=== PATIENT | female | born 1995 | race Caucasian/White ===

== ENCOUNTER 2018-05-17 14:38 | Emergency (ER) | payer SELFPAY ==
--- NOTE | 2018-05-17 14:52 | ED.PDOC ---
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 She is [id number].her first baby delivered vaginally in 2 yrs ago uncomplicated. Timing/Duration: just prior to arrival Quality: moderate, cramping Radiation: suprapubic Activites at Onset: none Prior abdominal problems: none Sexual intercourse history: single partner, other - see hpi Improving Factors: nothing Worsening Factors: nothing Associated Symptoms: other - feels about to passed out Allergies/Adverse Reactions: Allergies Erytrichium Allergy (Verified 05/17/18 15:17) Review of Systems - Review of Systems Constitutional: States: no symptoms reported EENTM: States: no symptoms reported Respiratory: States: no symptoms reported Cardiology: States: no symptoms reported Gastrointestinal/Abdominal: States: no symptoms reported Genitourinary: States: see HPI, other - post bleeding Skin: States: no symptoms reported Neurological: States: no symptoms reported Endocrine: States: no symptoms reported Past Medical History (General) - Patient Medical History Hx Seizures: No Hx Asthma: No Hx Cardiac Disorders: No Surgical History: no surgical history - Social History Hx Tobacco Use: No Hx Alcohol Use: No Hx Substance Use: No Hx Depression: No Feels Threatened In Home Enviroment: No Hx Physical Abuse: No Hx Emotional Abuse: No - Activities of Daily Living Patient Lives Alone: No - Female History Patient is a Female of Child Bearing Age (10 -59 yrs old): Yes Patient : No - post -2 days Family Medical History - Family History Mother Family History: No Known Physical Exam - Physical Exam General Appearance: Alert, Comfortable, No apparent distress Eyes, Ears, Nose, Throat Exam: PERRL/EOMI, normal ENT inspection Neck: supple, normal inspection Cardiovascular/Respiratory: regular rate, rhythm, no M/R/G, normal peripheral pulses, normal breath sounds, no respiratory distress Gastrointestinal/Abdominal: normal bowel sounds, non tender, soft Pelvic Exam: no cerv. motion tender, active bleeding - cervical os, other - blood clots/vagina;uterus firm Back Exam: no CVA tenderness, no vertebral tenderness Extremity: no pedal edema, no calf tenderness Neurologic: alert, oriented x 3 Progress - Progress Progress: 05/17/18 16:16 Vital Signs - 8 hr 05/17/18 15:06 Temperature 97.4 F L Pulse Rate [ 110 H left arm] Respiratory 16 Rate Blood Pressure 103/61 [Left Arm] O2 Sat by Pulse 99 Oximetry 05/17/18 16:41 Uterus was vigorously massage until firm and noted big blood clots coming out / vagina - Results/Orders Results/Orders: Laboratory Results - last 24 hr 05/17/18 05/17/18 05/17/18 14:30 14:30 14:30 WBC 11.0 H RBC 2.93 L Hgb 8.4 L Hct 25.5 L MCV 87.2 MCH 28.6 MCHC 33.0 RDW 15.0 H Plt Count 275 MPV 8.3 Absolute Neuts (auto) 7.40 H Absolute Lymphs (auto) 2.90 Absolute Monos (auto) 0.60 Absolute Eos (auto) 0.10 Absolute Basos (auto) 0.00 Neutrophils % 66.9 Lymphocytes % 26.0 Monocytes % 5.8 Eosinophils % 1.2 Basophils % 0.1 Sodium 141 Potassium 3.5 L Chloride 106 Carbon Dioxide 26 Anion Gap 12.5 BUN 18 Creatinine 0.88 BUN/Creatinine Ratio 20.5 H Random Glucose 113 H Serum Osmolality 284.0 Calcium 8.7 Beta HCG, Quant Patient ABO/Rh A POSITIVE Antibody Screen Cancelled 05/17/18 14:30 WBC RBC Hgb Hct MCV MCH MCHC RDW Plt Count MPV Absolute Neuts (auto) Absolute Lymphs (auto) Absolute Monos (auto) Absolute Eos (auto) Absolute Basos (auto) Neutrophils % Lymphocytes % Monocytes % Eosinophils % Basophils % Sodium Potassium Chloride Carbon Dioxide Anion Gap BUN Creatinine BUN/Creatinine Ratio Random Glucose Serum Osmolality Calcium Beta HCG, Quant 36.6 H Patient ABO/Rh Antibody Screen - EKG/XRAY/CT Xray Comments: Pelvic Sono-no retained placental fragments;blood clots uterus Departure - Departure Clinical Impression: Near syncope, Anemia due to blood loss hemorrhage, condition Qualifiers: hemorrhage type: delayed hemorrhage Qualified Code(s): O72.2 - Delayed and secondary hemorrhage Time of Disposition: 16:46 Disposition: Transfer to Hospital Condition: Fair Departure Forms: Patient Portal Self Enrollment Transfer to Outside Facility - Transfer Information Accepting Provider:: D/W Dr. Timmy Schulz Accepting Facility: [facility] Reason for Transfer: required specialist not available - Obstetrics
[2018-05-17] MEDS ORDERED: SODIUM CHLORIDE 0.9% 1000ML 1,000 ML IVS ONE (14:53)
[2018-05-17] MEDS ORDERED: fentaNYL CITRATE INJ 50 MCG/ML AMP ONE (15:26)
[2018-05-17] MEDS ORDERED: fentaNYL CITRATE INJ 50 MCG/ML AMP IV ONE (15:43)
--- NOTE | 2018-05-17 15:59 | US ---
Transabdominal pelvic sonogram CLINICAL HISTORY: Persistent vaginal bleeding 9 days FINDINGS: Uterus measures 12.9 x 10 cm. Endometrial cavity is distended filled with heterogeneous echotexture with greatest transverse dimension up to 6.5 cm. Color flow Doppler shows no vascularity in the endometrial cavity Both ovaries are normal in size and appearance. No adnexal mass lesion. No free fluid IMPRESSION: Distended endometrial cavity filled with heterogeneous mixed echogenicity compatible with blood/hemorrhage. No color Doppler vascularity demonstrated to diagnose vascularized retained products of conception Electronically signed by: Edmundo Sorto MD 05/17/2018 3:57 PM CDT
[2018-05-17 17:18] VITALS: O2SAT 100
[2018-05-17 17:20] VITALS: BP 99/53; TEMP 99
== END 2018-05-17 17:18 | disposition short-term general hospital (02) ==
LOC: ER 14:38
DX: O72.2 Delayed and secondary postpartum hemorrhage (principal); R55 Syncope and collapse; O90.81 Anemia of the puerperium; D62 Acute posthemorrhagic anemia
CPT/HCPCS: 76856; 80048; 84702; 85025; 86900; 86901; J3010; J7030